=== PATIENT | male | born 2000 | race Asian ===

== ENCOUNTER 2019-03-03 20:22 | Emergency (ER) | payer MEDICAID ==
[~2019-03-03] VITALS: Ht 170.2 cm; Wt 72.6 kg
[2019-03-03 20:36] VITALS: BP 128/81
[2019-03-03] MEDS ORDERED: IBUPROFEN 800 MG TAB PO ONE (23:00)
[2019-03-03] MEDS ORDERED: HYDROcodone-ACET 7.5/325MG TAB PO ONE (23:00)
== END 2019-03-03 23:48 | disposition home or self-care (01) ==
LOC: ER 20:25
DX: S52.572A Other intraarticular fracture of lower end of left radius, initial encounter for closed fracture (principal); S52.615A Nondisplaced fracture of left ulna styloid process, initial encounter for closed fracture; V00.311A Fall from snowboard, initial encounter; Y93.23 Activity, snow (alpine) (downhill) skiing, snowboarding, sledding, tobogganing and snow tubing; Y92.89 Other specified places as the place of occurrence of the external cause; Y99.8 Other external cause status
CPT/HCPCS: 29125; 73110